=== PATIENT | female | born 1950 | race Caucasian/White ===

== ENCOUNTER 2020-12-19 09:03 | Outpatient (REF) | payer MEDICARE, MEDICAID, SELFPAY ==
--- NOTE | ~2020-12-19 | MM_ITS ---
EXAMINATION: BONE DENSITOMETRY CLINICAL INDICATION: Screening for osteoporosis. COMPARISON: Baseline BD dated 05/03/2014. TECHNIQUE: Using a PrePlay DXA System (software version: 13.1) manufactured by [employer], dual-energy x-ray absorptiometry was performed of the lumbar spine and left hip. The images are of good technical quality. Summary results are attached. FINDINGS: AP SPINE L1-L3 (excluding L4): The data of L1-L4 has been changed to exclude the L4 vertebral body, because degenerative changes at these levels may cause overestimation of lumbar spine density. Current: BMD 1.102 g/cm2, Z-score 1.2, T-score -0.6, normal, 0.0% no change from baseline (<5% change is not significant). Baseline: BMD 1.102 g/cm2. LEFT FEMUR, NECK: Current: BMD 0.800 g/cm2, Z-score 0.1, T-score -1.7, osteopenia. Baseline: BMD 0.774 g/cm2. LEFT FEMUR, TOTAL: Current: BMD 0.844 g/cm2, Z-score 0.3, T-score -1.3, osteopenia, 1.2% increase from baseline (<5% change is not significant). Baseline: BMD 0.834 g/cm2. IDENTIFIED RISK FACTORS: Menopause. HISTORY OF FRACTURE: None listed. MEDICATIONS: None listed. MM/XR DEXA axial skeleton IMPRESSION: 1. DIAGNOSIS: Osteopenia based on the lowest T-score value of -1.7 in the femoral neck applying World Health Organization criteria. 2. 10-YEAR FRACTURE RISK PREDICTION, FRAX: Major osteoporotic fracture (clinical spine, forearm, hip or shoulder) 10.6%. Hip fracture 1.8%. 3. Treatment Recommendations: NOF guidelines recommend consideration for treatment in postmenopausal women and men age 50 and older presenting with the following: -A hip or vertebral (clinical or morphometric) fracture. -T-score less than or equal to -2.5 at the femoral neck or spine after appropriate evaluation to exclude secondary causes. -Low bone mass at the hip or spine and a 10-year fracture probability by FRAX of greater than or equal to 3% for hip fracture or greater than or equal to 20% for major osteoporotic fracture based on the [place] adapted WHO algorithm. 4. Other Recommendations: All treatment decisions require clinical judgment and consideration of individual patient factors, including patient preferences, comorbidities, previous drug use, risk factors not captured in the FRAX model (e.g. frailty, falls, vitamin D deficiency, increased bone turnover, interval significant decline in bone density) and possible under or overestimation of fracture risk by FRAX. Additional medical evaluation for secondary cause of low bone mineral density may be appropriate. FUTURE SCAN RECOMMENDATION: People with diagnosed cases of osteoporosis or at high risk for fracture should have regular bone mineral density tests. For patients eligible for Medicare, routine testing is allowed once every 2 years. The testing frequency can be increased to one year for patients who have rapidly progressing disease, those who are receiving or discontinuing medical therapy to restore bone mass, or have additional risk factors.
== END 2020-12-19 09:04 | disposition home or self-care (01) ==
LOC: HO.MAMMO 09:03
PROVIDERS: PCP Internal Medicine; Visit Provider Internal Medicine
DX: Z13.820 Encounter for screening for osteoporosis (principal); M16.0 Bilateral primary osteoarthritis of hip; Z78.0 Asymptomatic menopausal state
CPT/HCPCS: 77080

== ENCOUNTER 2022-10-02 09:10 | Outpatient (REF) | payer MEDICARE, MEDICAID, SELFPAY ==
--- NOTE | ~2022-10-02 | XR_ITS ---
EXAMINATION: XR CHEST CLINICAL INFORMATION: Cough for one month COMPARISON: Previous chest x-ray August 2019 chest CTA November 2019 TECHNIQUE: 2 views of the chest were obtained. FINDINGS: The cardiac and mediastinal contours are stable. The lungs are well inflated. There is question of lower lobe bronchial wall thickening. No evidence of pneumonia. No pleural effusion or pneumothorax. Bony structures are unremarkable. XR/XR chest 2V IMPRESSION: Well-inflated lungs. Question lower lobe bronchial wall thickening. No evidence of pneumonia.
== END 2022-10-02 09:11 | disposition home or self-care (01) ==
LOC: HO.XRAY 09:10
PROVIDERS: PCP Internal Medicine; Visit Provider Internal Medicine
DX: R05.2 Subacute cough (principal)
CPT/HCPCS: 71046

== ENCOUNTER 2023-09-18 16:12 | Outpatient (REF) | payer MEDICARE, MEDICAID, SELFPAY ==
[2023-09-18 17:49] LABS: Appearance Urine Clear; Color Urine Yellow; Glucose Urine UA Negative (Negative); Leukocyte Esterase Urine Large (3+) (Negative); Nitrite Urine Negative (Negative); Specific Gravity - Urine <= 1.005 (1.005-1.025); UMIC TRIGGER UACC YES; Urine Blood Trace (Negative); Urine Ketones Negative (Negative); Urine Protein Negative (Neg-Trace)
[2023-09-18 17:55] LABS: Bacteria Urine None Seen (None Seen); Hyaline Casts Urine 0-2 /LPF (0-2); RBC Urine 0-2 /HPF (0-2); Squamous Epithelial Cell Urine 0-2 /HPF (0-2); UACC Culture Trigger YES; WBC Urine 21-50 /HPF (0-5)
== END 2023-09-18 16:13 | disposition home or self-care (01) ==
LOC: HO.CHCLNP 16:12
PROVIDERS: Visit Provider Internal Medicine
DX: N30.01 Acute cystitis with hematuria (principal)
CPT/HCPCS: 81001; 87086

== ENCOUNTER 2024-03-10 11:59 | Outpatient (REF) | payer MEDICARE, MEDICAID, SELFPAY ==
[2024-03-10 14:23] LABS: MANUAL DIFF FLAG NO
[2024-03-10 14:25] LABS: Basophils Absolute Auto 0.1 X10*3/uL (0.0-0.2); Basophils Percent Auto 0.9 % (0-2); Eosinophils Absolute Auto 0.3 X10*3/uL (0.0-0.4); Hematocrit 41.4 % (37.0-47.0); Hemoglobin 13.8 g/dl (12.0-16.0); Imm Gran Abs Auto 0.02 X10*3/uL (0.00-0.03); Imm Gran Pct Auto 0.3 % (0.0-0.4); Lymphocytes Absolute Auto 1.9 X10*3/uL (1.2-4.9); Lymphocytes Percent Auto 27.7 % (20-40); Mean Corpuscular HGB Conc 33.3 g/dl (31.0-35.0); Mean Corpuscular Hemoglobin 29.9 pg (27.0-33.0); Mean Corpuscular Volume 89.8 fL (80.0-98.0); Mean Platelet Volume 9.4 fL (9.4-12.3); Monocytes Absolute Auto 0.5 X10*3/uL (0.1-1.2); Neutrophils Absolute Auto 4.1 x10*3/uL (2.0-8.3); Neutrophils Percent Auto 59.1 % (45-73); Platelet Count 255 X10*3/uL (160-400); Red Blood Count 4.61 X10*6/uL (4.20-5.50); Red Cell Distribution Width 13.2 % (11.0-16.0); White Blood Count 6.9 X10*3/uL (4.8-10.8)
[2024-03-10 14:54] LABS: Alanine Aminotransferase 13 U/L (0-31); Albumin Level 4.2 g/dL (3.5-5.0); Alkaline Phosphatase 98 U/L (39-117); Anion Gap 15 (12-20); Aspartate Amino Transferase 23 U/L (5-31); Bilirubin Total 0.4 mg/dL (0.0-1.0); Blood Urea Nitrogen 10 mg/dL (9-16); Carbon Dioxide 25 mmol/L (22-29); Chloride 106 mmol/L (96-108); Cholesterol 185 mg/dL (<200); Estimated Glomerular Filt Rate > 60; Glucose Random 94 mg/dL (60-115); HDL Cholesterol 55 mg/dL (>40); LDL Cholesterol Calculated 108 mg/dL (<100); Potassium 3.9 mmol/L (3.3-5.1); Sodium 142 mmol/L (135-145); Total Protein 7.1 g/dL (6.5-8.0); Triglycerides 114 mg/dL (<150)
[2024-03-10 15:01] LABS: TSH reflex Free T4 1.96 uIU/mL (0.32-4.0)
== END 2024-03-10 12:00 | disposition home or self-care (01) ==
LOC: HO.CHCLDS 11:59
PROVIDERS: Visit Provider Internal Medicine
DX: I10 Essential (primary) hypertension (principal); E78.2 Mixed hyperlipidemia
CPT/HCPCS: 36415; 80053; 80061; 84443; 85025

== ENCOUNTER 2024-06-09 13:19 | Outpatient (REF) | payer MEDICARE, MEDICAID, SELFPAY ==
--- OUTSIDE RECORDS SUMMARY | 2024-06-09 16:18 | XMS_ITS | Encounter Summary ---
Author Organization [employer] Address [address] [place] [address] [address] [place] [address] Care Team Providers Care Recreation Activities Coordinator Name Role Phone Francisco Suh MD Primary Care Provider [phone] Reason for Visit * Reason Comments Med Refill Encounter Details Date Type Department Care Team ([facility] Contact Info) Description 10/10/2022 Refill [facility] & PEDS [address], [place] [id number] Loyda Salas MD [address] [place] [address] Social History Tobacco Use Types Packs/Day Years Used Date Smoking Tobacco: Former Cigarettes 0.5 49 1 968 - 2016 Smokeless Tobacco: Never Depression Answer Date Recorded Patient Health Questionnaire-9 Score 0 09/26/2022 Depression Answer Date Recorded Patient Health Questionnaire-2 Score 0 09/26/2022 Comments Unknown Sex and Gender Information Value Date Recorded Sex Assigned at Female 02/11/2022 10:14 AM EDT Legal Sex Female 10:14 AM EDT Gender Identity Female 02/11/2022 10:14 AM EDT Sexual Orientation Straight 02/11/2022 10 :14 AM EDT COVID-19 Exposure Response Date Recorded In the last 10 days, have yo u been in contact with someone who was confirmed or suspected to have Coronavirus/COVID-19? No / Unsure 10/10/2022 1:01 PM EDT documented as of this encounter Plan of Treatment Upcoming Encounters Date Type Department Care Team (Late Contact Info) Description 08/10/2024 10:30 AM EDT Office Visit [facility] MED & PEDS [address] [place] [address] Francisco Suh MD [address] [place] [address] documented as of this encounter Visit Diagnoses Not on filedocumented in this encounter Additional Health Concerns Assessment Noted Time PHQ-9 Depression Total Score: 0 09/27/19 23 10:06 AM EDT documented as of this encounter Care Teams Recreation Activities Coordinator Relationship Specialty Start Date End Date Francisco Suh MD [address] [place] [address] PCP - General Internal Medicine 04/21/13 documented as of this encounter
--- OUTSIDE RECORDS SUMMARY | 2024-06-09 16:18 | XMS_ITS | Encounter Summary ---
Author Organization [employer] Address [address] [place] [address] [address] [place] [address] Care Team Providers Care Assistant Maintenance Manager Name Role Phone Francisco Suh MD Primary Care Provider [phone] Reason for Visit * Reason Onset Date Comments Medication Question 09/01/2023 Encounter Details Date Type Department Care Team ([facility] st Contact Info) Description 09/01/2023 Telephone [facility] MEDICINE [address] [place] [address] Francisco Suh MD [address] [place] [address] Medication Question Social History Tobacco Use Types Packs/Day Years Used Date Smoking Tobacco: Former Cigarettes 0.5 49 1 968 - 2017 Smokeless Tobacco: Never Depression Answer Date Recorded Patient Health Questionnaire-9 Score 0 09/26/2022 Depression Answer Date Recorded Patient Health Questionnaire-2 Score 0 09/26/2022 Comments Unknown Sex and Gender Information Value Date Recorded Sex Assigned at Female 02/11/2022 10:14 AM EDT Legal Sex Female 10:14 AM EDT Gender Identity Female 02/11/2022 10:14 AM EDT Sexual Orientation Straight 02/11/2022 10 :14 AM EDT documented as of this encounter Miscellaneous Notes * Telephone Encounter - Wing Rufina RN - 09/02/2023 9:26 AM EDT Tc to pt to report change in script to incruse ellipta. Pt verbalized understanding and agreement with plan, states she will call [facility] pharm to see if med can be sent to her due to transportation issues. * Telephone Encounter - Chidi Bradshaw - 09/01/2023 9:04 AM EDT Tc from patient calling to request a alternative medication for the Spiriva HandiHaler 18 MCG inhalation capsule patient stated due to insurance it will not be covered documented in this encounter Plan of Treatment Upcoming Encounters Date Type Department Care Team (Late st Contact Info) Description 08/10/2024 10:30 AM EDT Office Visit [facility] MED & PEDS [address] [place] [address] Francisco Suh MD [address] [place] [address] documented as of this encounter Visit Diagnoses Not on filedocumented in this encounter Additional Health Concerns Assessment Noted Time PHQ-9 Depression Total Score: 0 09/27/19 23 10:06 AM EDT documented as of this encounter Care Teams Assistant Maintenance Manager Relationship Specialty Start Date End Date Francisco Suh MD [address] [place] [address] PCP - General Internal Medicine 04/21/13 documented as of this encounter
--- OUTSIDE RECORDS SUMMARY | 2024-06-09 16:18 | XMS_ITS | Clinical Summary ---
Author Organization [employer] Address [address] [place] [address] [address] [place] [address] Care Team Providers Care Kitchen Porter Name Role Phone Francisco Suh MD Primary Care Provider [phone] Allergies Active Allergy Reactions Criticality Noted Date Comments Iodine 11/03/2012 Shellfish-Derived Products High 2 Other reaction(s): Hives Medications amLODIPine (Norvasc) 10 MG tabletIndication s:Essential hypertension TAKE ONE TABLET EVERY DAY 90 tablet 3 3 Active simvastatin (Zocor) 40 MG tablet TAKE ONE TABLET EVERY EVENING 2 Active omeprazole (PriLOSEC) [address] capsule take 1 capsule by oral route every day before a meal 2 Active albuterol (2.5 MG/3ML) 0.083% nebulizer solution Take 3 mL (2.5 mg) by nebulization every 4 (four) hours if needed for wheezing. 30 mL 1 3 Active omeprazole (PriLOSEC) [address] capsule TAKE ONE CAPSULE BY MOUTH EVERY DAY BEFORE A MEAL 90 capsule 3 4 Active amLODIPine (Norvasc) 10 MG tablet Take 1 tablet (10 mg) by mouth in the morning. 90 tablet 3 4 025 Active simvastatin (Zocor) 40 MG tabletIndication s:Hypercholester olemia TAKE ONE TABLET EVERY EVENING 90 tablet 3 4 Active Spiriva HandiHaler 18 MCG inhalation capsule USE 1 CAPSULE FOR INHALATION ONCE A DAY DO NOT SWALLOW CAPSULE 30 capsule 11 4 Active Umeclidinium [place] (Incruse Ellipta) 62.5 MCG/ACT aerosol powderIndication s:Chronic obstructive pulmonary disease with acute exacerbation (CMS/HCC) Inhale 1 Act (62.5 mcg) Once per day. 3 months supply please. 90 each 3 4 Active albuterol 108 (90 Base) MCG/ACT inhalerIndicatio ns:Chronic obstructive pulmonary disease with acute exacerbation (CMS/HCC) Inhale 2 puffs every 4 (four) hours if needed for wheezing. 18 g 3 4 025 Active Advair HFA 230-21 MCG/ACT inhalerIndicatio ns:COPD mixed type (CMS/HCC) INHALE ONE PUFF EVERY 12 HOURS, RINSE MOUTH AFTER USE 12 g 11 5 Active fluconazole (Diflucan) 150 MG tabletIndication s:Acute vaginitis Take 1 tablet by oral route. 1 tablet 5 Active Active Problems Problem Noted Date Diagnosed Date Chronic obstructive lung disease 12/04/2017 Benign hypertension 12/03/2011 Diverticular disease 12/03/2011 Hyperlipidemia 12/03/2011 Encounters Date Type Department Care Team Description 06/09/2024 11:15 AM EST Office Visit [facility] [address] [place] [address] TofteLeeann FNP Acute vaginitis (Primary Dx) 06/09/2024 Travel 06/08/2024 Telephone [facility] [address] [place] [address] Francisco Suh MD 04/22/2024 9:00 AM EST Telemedicine [facility] [address] [place] [address] Francisco Suh MD Benign hypertension (Primary Dx); Chronic obstructive pulmonary disease with acute exacerbation (CMS/HCC); Neck pain 04/22/2024 Travel 04/15/2024 Refill [facility] [address] [place] [address] Francisco Suh MD COPD mixed type (CMS/HCC) 03/22/2024 Telephone [facility] [address] [place] [address] Francisco Suh MD 03/22/2024 Telephone [facility] [address] [place], [place] [phone] Francisco Suh MD 03/21/2024 Orders Only [facility] [address] [place] [address] Francisco Suh MD Positive colorectal cancer screening using Cologuard test (Primary Dx) 03/10/2024 10:30 AM EST Office Visit [facility] [address] [place] [address] Francisco Suh MD Benign hypertension (Primary Dx); Chronic obstructive pulmonary disease with acute exacerbation (CMS/HCC); Mixed hyperlipidemia; Screening for colon cancer 03/10/2024 Travel from Last 3 Months Immunizations Name Administration Dates Next Due TD (adult), 2 Lf tetanus tox oid, preservative free, adsorbed 07/10/2004,07/22/1994 Social History Tobacco Use Types Packs/Day Years Used Date Smoking Tobacco: Former Cigarettes 0.5 49 1 968 - 2017 Smokeless Tobacco: Never Tobacco Cessation:Counseling Given: No Depression Answer Date Recorded Patient Health Questionnaire-9 Score 0 03/10/2024 Patient Health Questionnaire-9 Score 0 03/10/2024 Last PHQ-9: Questionnaire Data Not on file 1 05/10/2023 Housing Stability Answer Date Recorded What is your housing situation today? I have gary mays 03/10/[address] you li ve. Do you have problems with any of the following? None of the above 03/10/2024 Food Insecurity Answer Date Recorded Within the past 12 months, y ou worried that your food would run out before you got money to buy more: Never True 03/10/2024 Within the past 12 months,th e food you bought just didn't last and you didn't have enough money to get more: Never True Transportation Answer Date Recorded In the past 12 months, has l ack of transportation kept you from medical appts, meetings, work or from getting things needed for daily living? No 03/10/2024 Utilities Answer Date Recorded In the past 12 months, has t he electric, gas, oil or water company threatened to shut off services in your home? No 03/10/2024 Depression Answer Date Recorded Patient Health Questionnaire-2 Score 0 03/10/2024 Internet Access Answer Date Recorded Internet Access Q1 Yes 03/10/2024 Internet Access Q2 Not on file 03/10/2024 Comments Unknown Sex and Gender Information Value Date Recorded Sex Assigned at Female 02/11/2022 10:14 AM EDT Legal Sex Female 10:14 AM EDT Gender Identity Female 02/11/2022 10:14 AM EDT Sexual Orientation Straight 02/11/2022 10 :14 AM EDT Last Filed Vital Signs Vital Sign Reading Time Taken Comments Blood Pressure 140/68 06/09/2024 12:13 PM EST Pulse 88 06/09/2024 11:23 AM EST Temperature 36.5 ??C (97.7 ??F) 06/09/2024 11:[address] Respiratory Rate 14 06/09/2024 11:23 AM EST Oxygen Saturation 96% 06/09/2024 11:23 AM EST Inhaled Oxygen Concentration - - Weight 57.2 kg (126 lb) 06/09/2024 11:23 AM EST Height 152.4 cm (5') 06/09/2024 11:23 AM EST Body Mass Index 24.61 06/09/2024 11:23 AM EST Plan of Treatment Upcoming Encounters Date Type Department Care Team (Late st Contact Info) Description 08/10/2024 10:30 AM EDT Office Visit [facility] [address] [place] [address] Francisco Suh MD [address] [place] [address] Health Maintenance Due Date Last Done Comments CT Colonography 1950 Colonoscopy 1950 FIT 1950 FOBT 1950 Sigmoidoscopy 1950 Alcohol/Substance Use Screening 1962 Lung Cancer Screening 2000 Zoster Vaccines (1 of 2) 2000 RSV Patients and Patients Aged 60 years or older (1 - Risk 60-74 years 1-dose series) 2010 Mammogram 12/19/2022 12/19/2020, 02/23/2019 Influenza Vaccine (#1) 2024 Postp oned from 12/14/2023 (Patient Refused) COVID-19 Vaccine (1 - 2023-2 5 season) 2025 Postponed from 12/13 (Patient Refused) DTaP/Tdap/Td Vaccines (1 - Tdap) 03/10/2025 07/10/2004, 07/22/1994 Postponed from 07/11/2004 (Patient Refused) Depression Screening 03/10/2025 03/10/2024, 03/10/2024 Pneumococcal Vaccine: 50+ Years (1 of 2 - PCV) 03/10/2025 Postponed from 08/13 (Patient Refused) SDOH Screening 03/10/2025 03/10/2024 Tobacco Screening 04/22/2025 04/22/2024 Colorectal Cancer Screening 03/15/2027 FIT DNA/Cologuard 03/15/2027 03/15/2024 Lipid Panel 03/10/2029 03/10/2024, 01/07/2022 Hepatitis C Screening Completed 01/07/2022 HIB Vaccines Aged Out No longer eligi ble based on patient's age to complete this topic HPV Vaccines Aged Out No longer eligi ble based on patient's age to complete this topic Hepatitis A Vaccines Aged Out No long er eligible based on patient's age to complete this topic Hepatitis B Vaccines Aged Out No long er eligible based on patient's age to complete this topic IPV Vaccines Aged Out No longer eligi ble based on patient's age to complete this topic Meningococcal Vaccine Aged Out No henri rhina eligible based on patient's age to complete this topic RSV under 20 months Aged Out No longe r eligible based on patient's age to complete this topic Rotavirus Vaccines Aged Out No longer eligible based on patient's age to complete this topic Procedures Procedure Name Priority Date/Time Associated Diagnosis Comments POCT URINALYSIS DIPSTICK Routine 06/09/2024 12:50 PM EST Acute vaginitis LAB COLOGUARD?? COLON CANCER SCREEN Routine 03/15/2024 10:15 AM EST Screening for colon cancer TSH W/REFLEX TO FT4 Routine 03/10/2024 1 2:00 PM EST Mixed hyperlipidemia LIPID PANEL, STANDARD Routine 03/10/2024 12:00 PM EST Mixed hyperlipidemia COMPREHENSIVE METABOLIC PANEL Routine 03/10/2024 12:00 PM EST Mixed hyperlipidemia CBC WITH AUTO DIFFERENTIAL Routine 03/10/2024 12:00 PM EST Benign hypertension Mixed hyperlipidemia ZZZ HISTORICAL HEPATITIS C AB W/REFL TO HCV RNA, QN, PCR Routine 01/07/2022 9:50 AM EDT MAMMOGRAM GENERIC Routine 12/19/2020 9:1 5 AM EDT from Last 3 Months or Most Recently Relevant to Health Maintenance Results * POCT urinalysis dipstick manually resulted (06/09/2024 12:50 PM EST) Color, UA Yellow Clarity, UA Clear Glucose, UA Negative Bilirubin, UA Negative Ketones, UA Negative Spec Grav, UA 1.030 Blood, UA Negative Negative, None Detected pH, UA 6.0 Protein, UA Negative Urobilinogen, UA 1.0 Leukocytes, UA Negative Negative, Rare, Trace Nitrite, UA Negative Negative, None Detected Appearance, UA clear QC Media Lot # Comment:[id number] Lot# Expiration Date Comment:01/11/2025 Urine 06/09/2024 12:5 0 PM EST [facility] ENVIRONMENTAL MAINTENANCE WORKER POINT OF CARE TEST ENTER/EDIT ORDERABLES Final Result * (ABNORMAL) Cologuard?? colon cancer screening (03/15/2024 10:15 AM EST) Cologuard Result Positive( A) Negative 03/20/2024 9:39 PM EST [facility] (CLIA #:[id number]) Comment: POSITIVE TEST RESULT. A positive Cologuard result should be followed with a colonoscopy or visual examination of the colon. The normal value (reference range) for this assay is negative. TEST DESCRIPTION: Composite algorithmic analysis of stool DNA-biomarkers with hemoglobin immunoassay. ?? Quantitative values of individual biomarkers are not reportable and are not associated with individual biomarker result reference ranges. Cologuard is intended for colorectal cancer screening of adults of either sex, 45 years or older, who are at average-risk for colorectal cancer (CRC). Cologuard has been approved for use by the U.S. FDA. The performance of Cologuard was established in a cross sectional study of average-risk adults aged 50-84. Cologuard performance in patients ages 45 to 49 years was estimated by sub-group analysis of near-age groups. Colonoscopies performed for a positive result may find as the most clinically significant lesion: colorectal cancer [4.0%], advanced adenoma (including sessile serrated polyps greater than or equal to 1cm diameter) [20%] or non- advanced adenoma [31%]; or no colorectal neoplasia [45%]. These estimates are derived from a prospective cross-sectional screening study of 10,000 individuals at average risk for colorectal cancer who were screened with both Cologuard and colonoscopy. (Johnie Ag al, N Engl J Med 2014;370(14):1037-3686.) Cologuard may produce a false negative or false positive result (no colorectal cancer or precancerous polyp present at colonoscopy follow up). A negative Cologuard test result does not guarantee the absence of CRC or advanced adenoma (pre-cancer). The current Cologuard screening interval is every 3 years. ([place] Cancer Society and U.S. Multi-Society Task Force). Cologuard performance data in a 10,000 patient pivotal study using colonoscopy as the reference method can be accessed at the following location: [email or web address]. Additional description of the Cologuard test process, warnings and precautions can be found at [email or web address]. Stool specimen (specimen) 03/15/2024 10:15 AM EST 03/16/2024 1:11 PM EST us Francisco Suh MD LAB MOLECULAR DIAGNOSTICS O RDERABLES Final Result [email or web address] (CLIA #:[id number]) [place] [address], * TSH W/Reflex to FT4 (03/10/2024 12:00 PM EST) Pathologist [facility] TSH reflex Free T4 1.96 0.32 - 4.0 uIU/mL [facility] Blood Venous blood specimen / Unknown 03/10/2024 12:00 PM EST 03/10/2024 2:18 PM EST Francisco Suh MD LAB BLOOD ORDERABLES Final Result Performing Organization Address City/[facility]/ZIP Co de Phone Number [facility] [address] [place] [address] [phone] * (ABNORMAL) CBC auto differential (03/10/2024 12:00 PM EST) [facility] White Blood Count 6.9 4.8 - 10.8 X10*3/uL [facility] Red Blood Count 4.61 4.20 - 5.50 X10*6/uL [facility] Hemoglobin 13.8 12.0 - 16.0 g/dl [facility] Hematocrit 41.4 37.0 - 47.0 % [facility] Mean Corpuscular Volume 89.8 80.0 - 98.0 fL [facility] Mean Corpuscular Hemoglobin 29.9 27.0 - 33.0 pg [facility] Mean Corpuscular HGB Conc 33.3 31.0 - 35.0 g/dl [facility] Red Cell Distribution Width 13.2 11.0 - 16.0 % [facility] Platelet Count 255 160 - 400 X10*3/uL [facility] Mean Platelet Volume 9.4 9.4 - 12.3 fL [facility] Neutrophils Percent Auto 59.1 45 - 73 % [facility] Imm Gran Pct Auto 0.3 0.0 - 0.4 % [facility] Lymphocytes Percent Auto 27.7 20 - 40 % [facility] Monocytes Percent Auto 7.0 2 - 11 % [facility] Eosinophils Percent Auto 5.0(H) 0 - 4 % [facility] Basophils Percent Auto 0.9 0 - 2 % [facility] NRBC Pct Auto 0.0 0.0 - 0.2 /100WBC [facility] Neutrophils Absolute Auto 4.1 2.0 - 8.3 x10*3/uL [facility] Imm Gran Abs Auto 0.02 0.00 - 0.03 X10*3/uL [facility] Lymphocytes Absolute Auto 1.9 1.2 - 4.9 X10*3/uL [facility] Monocytes Absolute Auto 0.5 0.1 - 1.2 X10*3/uL [facility] Eosinophils Absolute Auto 0.3 0.0 - 0.4 X10*3/uL [facility] Basophils Absolute Auto 0.1 0.0 - 0.2 X10*3/uL [facility] NRBC Abs Auto 0.000 0.0 - 0.012 X10*3/uL [facility] Blood Venous blood specimen / Unknown 03/10/2024 12:00 PM EST 03/10/2024 2:18 PM EST us Francisco Suh MD LAB BLOOD ORDERABLES Final Result [facility] [address] [place] [address] [phone] * (ABNORMAL) Lipid Panel, Standard (03/10/2024 12:00 PM EST) Triglycerides 114 <150 mg/dL [facility] Comment:Desirable Triglyceri de: less than 150 mg/dLBorderline High Triglyceride 150-199 mg/dLHigh Triglyceride: 200-499 mg/dLVery High Triglyceride: greater than or equal to 5OO mg/dL Cholesterol 185 <200 mg/dL [facility] Comment:Desirable Cholestero l: less than 200 mg/dLBorderline High Cholesterol: 200-239 mg/dLHigh Cholesterol: greater than 239 mg/dL LDL Cholesterol Calculated 108(H) <100 mg/dL [facility] Comment:Desirable LDL: less than 100 mg/dLNear Optimal/Above Optimal LDL: 110- 129 mg/dLBorderline High LDL: 130-159 mg/dLHigh LDL: 160-189 mg/dLVery High LDL: greater than or equal to 190 mg/dL HDL Cholesterol 55 >40 mg/dL [facility] Comment:Desirable HDL: great er than 40 mg/dL Note: This HDL assay may give artificially low results in patients with liver disease. Blood Venous blood specimen / Unknown 03/10/2024 12:00 PM EST 03/10/2024 2:18 PM EST us Francisco Suh MD LAB BLOOD ORDERABLES Final Result [facility] [address] [place] [phone] * Comprehensive Metabolic Panel (03/10/2024 12:00 PM EST) Sodium 142 135 - 145 mmol/L [facility] Potassium 3.9 3.3 - 5.1 mmol/L [facility] Chloride 106 96 - 108 mmol/L [facility] Carbon Dioxide 25 22 - 29 mmol/L [facility] Anion Gap 15 12 - 20 [facility] Urea Nitrogen (BUN) 10 9 - 16 mg/dL [facility] Creatinine, Serum 0.75 0.5 - 1.4 mg/dL [facility] Estimated Glomerular Filt Rate >60 [facility] Comment:Chronic Kidney Disea se: Estimated GFR < 60 mL/min/1.66j5Smgiov Kidney Disease: Estimated GFR < 15 mL/min/1.73m2 Glucose 94 60 - 115 mg/dL [facility] Calcium 9.0 8.4 - 10.2 mg/dL [facility] Bilirubin, Total 0.4 0.0 - 1.0 mg/dL [facility] Aspartate Amino Transferase 23 5 - 31 U/L [facility] Alanine Aminotransferase 13 0 - 31 U/L [facility] Total Protein 7.1 6.5 - 8.0 g/dL [facility] Albumin Level 4.2 3.5 - 5.0 g/dL [facility] Alkaline Phosphatase 98 39 - 117 U/L [facility] Blood Venous blood specimen / Unknown 03/10/2024 12:00 PM EST 03/10/2024 2:18 PM EST us Francisco Suh MD LAB BLOOD ORDERABLES Final Result [facility] [address] [place] [address] [phone] * HEPATITIS C AB W/REFL TO HCV RNA, QN, PCR (01/07/2022 9:50 AM EDT) HEPATITIS C ANTIBODY NON-REACT [facility] NON-REACT [facility] INDEX 0.05 <1.00 [facility] Comment: ?? HCV antibody was non-reactive. There is no laboratory ?? evidence of HCV infection. ?? In most cases, no further action is required. However, if recent HCV exposure is suspected, a test for HCV RNA (test code 55424) is suggested. ?? For additional information please refer to http://education.Finsphere/faq/RZI30y6 (This link is being provided for informational/ educational purposes only.) ?? 01/07/2022 9:50 AM EDT us Francisco Suh MD HISTORICAL/NON ORDERABLE LA BS Final Result [facility] [address] * Mammography Report 1 (12/19/2020 9:15 AM EDT) Anatomical Region Laterality Modality Breast Bilateral Mammography 12/19/2020 9:15 AM EDT Narrative 12/20/2020 7:57 AM EDT Refer to the Notes tab for result details [facility] Procedure: Mammography Report 1 Procedure Note Provider, MD Mariya - 07/07/2022 Refer to the Notes tab for result details [facility] Procedure: Mammography Report 1 us Francisco Suh MD IMG BI PROCEDURES Final Res ult from Last 3 Months or Most Recently Relevant to Health Maintenance Insurance MEDICARE [facility] * Guarantor: Rachael Mcgraw Account Type Relation to Patient Date of Phone Billing Address Personal/Family Self [address] [facility] [place] [address] Care Teams Kitchen Porter Relationship Specialty Start Date End Date Francisco Suh MD [address] [place] [address] [place] [address] PCP - General Internal Medicine 04/21/13
--- OUTSIDE RECORDS SUMMARY | 2024-06-09 16:18 | XMS_ITS | Encounter Summary ---
Author Organization [employer] Address [address] [place] [address] [address] [place] [address] Care Team Providers Care Pulmonary Physical Therapist Name Role Phone Francisco Suh MD Primary Care Provider [phone] Encounter Details Date Type Department Care Team ([facility] st Contact Info) Description 06/09/2024 11:15 AM EST Office Visit [facility] [address] [place], [place] [phone] [facility] [address] [place] [address] Acute vaginitis (Primary Dx) Social History Tobacco Use Types Packs/Day Years [...] AM EDT documented as of this encounter Last Filed Vital Signs Vital Sign Reading [...] Mass Index 24.61 06/09/2024 11:23 AM EST documented in this encounter Plan of Treatment Upcoming Encounters Date Type Department Care Team (Late st Contact Info) Description 08/10/2024 10:30 AM EDT Office Visit [facility] [address] [place] [address] Francisco Suh MD [address] [place] [address] Scheduled Orders Name Type Priority Associated Diagnoses Orde r Schedule Bacterial Vaginosis Panel Microbiology Routine Acute vaginitis Ordered: 06/09/2024 documented as of this encounter Procedures Procedure Name Priority Date/Time Associated Diagnosis Comments POCT URINALYSIS DIPSTICK Routine 06/09/2024 12:50 PM EST Acute vaginitis documented in this encounter Results * POCT urinalysis dipstick manually resulted [...] Appearance, UA clear QC Media Lot # Comment:[id number] Lot# Expiration Date Comment:01/11/2025 Urine 06/09/2024 12:5 0 PM EST [facility] YEAST SUPERVISOR POINT OF CARE TEST ENTER/EDIT ORDERABLES Final Result documented in this encounter Visit Diagnoses Diagnosis Acute vaginitis- Primary Unspecified vaginitis and vulvovaginitis documented in this encounter Additional Health Concerns Assessment Noted Time PHQ-9 Depression Total Score: 0 03/10/20 24 11:11 AM EST documented as of this encounter Care Teams Pulmonary Physical Therapist Relationship Specialty Start Date End Date Francisco Suh MD [address] [place] [phone] PCP - General Internal Medicine 04/21/13 documented as of this encounter
--- OUTSIDE RECORDS SUMMARY | 2024-06-09 16:18 | XMS_ITS | Encounter Summary ---
Author Organization [employer] Address [address] [facility] [address] [place] [address] Care Team Providers Care Military Technology Manager Name Role Phone Francisco Suh MD Primary Care Provider [phone] Encounter Details Date Type Department Care Team (Latest Contact Info) Description 06/09/2024 Travel Social History Tobacco Use Types Packs/Day Years Used Date Smoking Tobacco: Former Cigarettes 0.5 49 1 968 - 2017 Smokeless Tobacco: Never Depression Answer Date Recorded Patient Health Questionnaire-9 Score 0 03/10/2024 Patient Health Questionnaire-9 Score 0 03/10/2024 Last PHQ-9: Questionnaire Data Not on file 1 05/10/2023 Housing Stability Answer Date Recorded What is your housing situation today? I have garynii mays 03/10/[address] you [...] AM EDT documented as of this encounter Plan of Treatment Upcoming Encounters Date Type Department Care Team (Late st Contact Info) Description 08/10/2024 10:30 AM EDT Office Visit [facility] [address] [place] [address] Francisco Suh MD [address] [place] [address] documented as of this encounter Visit Diagnoses Not on filedocumented in this encounter Additional Health Concerns Assessment Noted Time PHQ-9 Depression Total Score: 0 03/10/20 24 11:11 AM EST documented as of this encounter Care Teams Military Technology Manager Relationship Specialty Start Date End Date Francisco Suh MD [address] [place] [address] PCP - General Internal Medicine 04/21/13 documented as of this encounter
--- OUTSIDE RECORDS SUMMARY | 2024-06-09 16:18 | XMS_ITS | Encounter Summary ---
Author Organization [employer] Address [address] [place] [address] [place] [address] Care Team Providers Care Product Inspection Coordinator Name Role Phone Francisco Suh MD Primary Care Provider +1- [phone] Reason for Visit * Reason Onset Date Comments Medication Question 07/04/2023 Encounter Details Date Type Department Care Team ([facility] st Contact Info) Description 07/04/2023 Telephone [facility] MEDICINE [address] [place] [address] Francisco Suh MD [address] [place] [address] Medication Question Social History Tobacco Use Types [...] encounter Miscellaneous Notes * Telephone Encounter - Chidi Bradshaw - 07/04/2023 9:13 AM EDT Tc from patient calling to request the medication amLODIPine (Norvasc) 10 MG tablet be changed to a90 day supply documented in this encounter Plan of Treatment Upcoming Encounters Date Type Department Care Team (Late st Contact Info) Description 08/10/2024 10:30 AM EDT Office Visit [facility] CHC MED & PEDS [address] [place] [address] Francisco Suh MD [address] [place] [address] documented as of this encounter Visit Diagnoses Diagnosis Essential hypertension Unspecified essential hypertension Hypercholesterolemia Pure hypercholesterolemia documented in this encounter Additional Health Concerns Assessment Noted Time PHQ-9 Depression Total Score: 0 09/27/19 23 10:06 AM EDT documented as of this encounter Care Teams Product Inspection Coordinator Relationship Specialty Start Date End Date Francisco Suh MD [address] [place] [address] PCP - General Internal Medicine 04/21/13 documented as of this encounter
--- OUTSIDE RECORDS SUMMARY | 2024-06-09 16:18 | XMS_ITS | Encounter Summary ---
Author Organization [employer] Address [address] [place] [address] Care Team Providers Care Nursing Education Consultant Name Role Phone Francisco Suh MD Primary Care Provider +1- [phone] Encounter Details Date Type Department Care Team (Late st Contact Info) Description 06/21/2022 Orders Only [facility] MED & PEDS [address] [place] [address] Ekaterina Serrano LPN Social History Tobacco Use Types Packs/Day Years Used Date Smoking Tobacco: Never Assessed Comments Unknown Sex and Gender Information Value [...] Description 08/10/2024 10:30 AM EDT Office Visit [facility] MED & PEDS [address] [place] [address] Francisco Suh MD [address] [place] [address] documented as of this encounter Visit Diagnoses Not on filedocumented in this encounter Care Teams Nursing Education Consultant Relationship Specialty Start Date End Date Francisco Suh MD [address] [place] [address] PCP - General Internal Medicine 04/21/13 documented as of this encounter
--- OUTSIDE RECORDS SUMMARY | 2024-06-09 16:18 | XMS_ITS | Encounter Summary ---
Author Organization [employer] Address [address] [place] [address] 7 [place] [address] Care Team Providers Care Manufacturing Quality Engineer Name Role Phone Francisco Suh MD Primary Care Provider +1- [phone] Encounter Details Date Type Department Care Team (Late Contact Info) Description 09/01/2023 Orders Only [facility] MED & PEDS [address] [place], [place] [phone] Francisco Suh MD [address] [place] [address] Chronic obstructive pulmonary disease with acute exacerbation (CMS/HCC) (Primary Dx) Social History Tobacco Use Types [...] 08/10/2024 10:30 AM EDT Office Visit [facility] MED & PEDS [address] [place], [place] [phone] Francisco Suh MD [address] [place] [address] documented as of this encounter Visit Diagnoses Diagnosis Chronic obstructive pulmonary disease with acute exacerbation (CMS/HCC)- Primary documented in this encounter Additional Health Concerns Assessment Noted Time PHQ-9 Depression Total Score: 0 09/27/19 23 10:06 AM EDT documented as of this encounter Care Teams Manufacturing Quality Engineer Relationship Specialty Start Date End Date Francisco Suh MD [address] [place] [address] PCP - General Internal Medicine 04/21/13 documented as of this encounter
--- OUTSIDE RECORDS SUMMARY | 2024-06-09 16:18 | XMS_ITS | Encounter Summary ---
Author Organization [employer] Address [address] [place] [address] 7 [place] [address] Care Team Providers Care Conservation Worker Name Role Phone Francisco Suh MD Primary Care Provider +1- [phone] Encounter Details Date Type Department Care Team (Late Contact Info) Description 07/04/2023 Orders Only [facility] CHC MED & PEDS [address] [place], [place] [phone] Francisco Suh MD [address] [place] [address] Social History Tobacco Use Types Packs/Day Years [...] Description 08/10/2024 10:30 AM EDT Office Visit [facility] CHC MED & PEDS [address] [place], [place] [phone] Francisco Suh MD [address] [place], [place] [phone] documented as of this encounter Visit Diagnoses Not on filedocumented in this encounter Additional Health Concerns Assessment Noted Time PHQ-9 Depression Total Score: 0 09/27/19 23 10:06 AM EDT documented as of this encounter Care Teams Conservation Worker Relationship Specialty Start Date End Date Francisco Suh MD [address] [place] [address] PCP - General Internal Medicine 04/21/13 documented as of this encounter
--- OUTSIDE RECORDS SUMMARY | 2024-06-09 16:18 | XMS_ITS | Encounter Summary ---
Author Organization [employer] Address [address] [place] [address] 7 [place] [address] Care Team Providers Care Pot Puller Name Role Phone Francisco Suh MD Primary Care Provider +1- [phone] Encounter Details Date Type Department Care Team ([facility] Contact Info) Description 10/09/2022 Orders Only [facility] MEDICINE [address] [place] [address] Namrata Lopez LPN Social History Tobacco Use Types Packs/Day [...] Upcoming Encounters Date Type Department Care Team ([facility] Contact Info) Description 08/10/2024 10:30 AM EDT Office Visit [facility] CHC MED & PEDS [address] [place] [address] Francisco Suh MD [address] [place] [address] documented as of this encounter Visit Diagnoses Not on filedocumented in this encounter Additional Health Concerns Assessment Noted Time PHQ-9 Depression Total Score: 0 09/27/19 23 10:06 AM EDT documented as of this encounter Care Teams Pot Puller Relationship Specialty Start Date End Date Francisco Suh MD [address] [place] [address] PCP - General Internal Medicine 04/21/13 documented as of this encounter
--- OUTSIDE RECORDS SUMMARY | 2024-06-09 16:18 | XMS_ITS | Encounter Summary ---
Author Organization [employer] Address [address] [place] [address] [place] [address] Care Team Providers Care Managed Services Sales Consultant Name Role Phone Francisco Suh MD Primary Care Provider +1- [phone] Reason for Referral * Consultation (Routine) - Authorized Specialty Diagnoses / Procedures Referred By Contac t Referred To Contact Gastroenterology Diagnoses Positive colorectal cancer screening using Cologuard test Francisco Suh MD [address] [place] [address] Phone: tel: fax: Adalberto Tomlinson MD [address] [place] [address] Phone: tel: fax: Referral ID Status Reason Start Date Expiration Date Visits Requested Visits Authorized [id number] Authorized Specialty Services Required 03/21/2024 03/21/2025 1 1 Encounter Details Date Type Department Care Team ([facility] st Contact Info) Description 03/21/2024 Orders Only [facility] CHC MED & PEDS [address] [place], [place] [phone] Francisco Suh MD [address] [place] [phone] Positive colorectal cancer screening using Cologuard test (Primary Dx) Social History Tobacco Use Types [...] Description 08/10/2024 10:30 AM EDT Office Visit [facility] CHC MED & PEDS [address] [place] [address] Francisco Suh MD [address] [place] [address] Scheduled Referrals Name Type Priority Associated Diagnoses Order Schedule Referral to Gastroenterology Outpatient Referral Routine Positive colorectal cancer screening using Cologuard test Expected: 03/21/2024 (Approximate), Expires: 03/21/2025 documented as of this encounter Visit Diagnoses Diagnosis Positive colorectal cancer screening using Cologuard test- Primary documented in this encounter Additional Health Concerns Assessment Noted Time PHQ-9 Depression Total Score: 0 03/10/20 24 11:11 AM EST documented as of this encounter Care Teams Managed Services Sales Consultant Relationship Specialty Start Date End Date Francisco Suh MD [address] [place] [address] PCP - General Internal Medicine 04/21/13 documented as of this encounter
--- OUTSIDE RECORDS SUMMARY | 2024-06-09 16:18 | XMS_ITS | Encounter Summary ---
Author Organization [employer] Address [address] [facility] 7t [place] [address] Care Team Providers Care Geek [employer] Name Role Phone Francisco Suh MD Primary Care Provider +1- [phone] Encounter Details Date Type Department Care Team ([facility] Contact Info) Description 06/08/2024 Telephone [facility] CHC MED & PEDS [address] [place], [place] [phone] Francisco Suh MD [address] [place], [place] [phone] Social History Tobacco Use Types Packs/Day Years [...] encounter Miscellaneous Notes * Telephone Encounter - Faith Lopez RN - 06/08/2024 9:58 AM EST Pt walked in c/o vaginal burning, odor, and itching x 5 days. Pt denies any abnormal discharge and is requesting med for yeast infection. Pt was offered WIC but pt preferred to wait to see a providertomorrow. Pt denies any urinary issues and no hx of DM. Pt advised if symptoms get worse to go to WIC. Pt verbalized understanding and agrees with plan. documented in this encounter Plan of Treatment Upcoming Encounters Date Type Department Care Team ([facility] st Contact Info) Description 08/10/2024 10:30 AM EDT Office Visit [facility] MED & PEDS [address] [place] [address] Francisco Suh MD [address] [place] [address] documented as of this encounter Visit Diagnoses Not on filedocumented in this encounter Additional Health Concerns Assessment Noted Time PHQ-9 Depression Total Score: 0 03/10/20 24 11:11 AM EST documented as of this encounter Care Teams [employer] Relationship Specialty Start Date End Date Francisco Suh MD [address] [place] [address] PCP - General Internal Medicine 04/21/13 documented as of this encounter
[2024-06-10 14:06] LABS: Bacterial Vaginosis PCR NEGATIVE (Negative); Candida Group PCR NOT DETECTED (Not Detect); Candida glab krusei PCR NOT DETECTED (Not Detect); Trichomonas vaginalis PCR NOT DETECTED (Not Detect)
== END 2024-06-09 13:20 | disposition home or self-care (01) ==
LOC: HO.CHCLDS 13:19
PROVIDERS: Visit Provider Registered Nurse
DX: N76.0 Acute vaginitis (principal)
CPT/HCPCS: 81515

== ENCOUNTER 2025-04-01 09:32 | Outpatient (AMB) | payer MEDICARE, MEDICAID, SELFPAY ==
--- NOTE | 2025-04-01 07:56 | MHC.OFFVIS ---
Intake Visit Reasons: Former Smoker Allergies egg (Egg) Allergy (Mild, Unverified 12/30/19 15:34) NAUSEA Iodinated Contrast Media (IV Dye, Iodine Containing) Allergy (Mild, Unverified 12/30/19 15:34) HIVES Shellfish Allergy (Mild, Uncoded 12/30/19 15:34) HIVES HPI HPI Former Smoker: Details: Initial visit for this 74yo former smoker with a 25PYH. Patient started smoking at age 16 for 50 years at 1/2ppd. She quit 8 years ago in 08/10/2016. . Denies marijuana use. Denies second hand smoke exposure. Denies exposure to chemicals or substances like asbestos. . Denies known family history of lung cancer. Denies personal history of cancers. Denies chest CT in last year. . Denies recent travel outside the [place]. Denies recent respiratory illness or recent hospitalization for respiratory issues. History testing positive for COVID. Denies receiving COVID Vaccine. . Denies fever, chills, new/worsening cough, hemoptysis, hoarseness or dysphagia. Denies significant chest pain, significant dyspnea or unintentional weight loss. Patient Lung Cancer Screening Questionnaire reviewed with patient by provider. . Shared Decision Making Completed. Patient meets criteria. Discussed in detail with patient, the risk vs benefit of LDCT screening. Patient consents to proceed with scan. Discussed smoking cessation. [facility] Medical History (Updated 04/01/25 @ 09:39 by Anna Goncalves PA-C) Osteopenia COPD (chronic obstructive pulmonary disease) Diverticular disease Hyperlipidemia Hypertension Personal history of nicotine dependence Surgical History (Updated 04/01/25 @ 09:58 by Anna Goncalves PA-C) History of carpal tunnel surgery of right wrist History of lumbar surgery History of partial colectomy Family History (Updated 04/01/25 @ 10:00 by Anna Goncalves PA-C) Mother Stomach cancer Social History (Updated 04/01/25 @ 10:08 by Anna Goncalves PA-C) Alcohol intake: current Alcohol intake frequency: does not drink Patient Tobacco Use Status: Former Tobacco user Years Smoked: (onset age 16, 1/2ppd x 50yrs, 25pyh, quit 2017) Assessment & Plan Assessment & Plan (1) Personal history of nicotine dependence: Comment: (onset age 16, 1/2ppd x 50yrs, 25pyh, quit 2017) Code(s): Z87.891 - Personal history of nicotine dependence Category: Medical Plan: - SDM visit completed today in office. - Patient meets criteria for LDCT for lung cancer screening purposes and is asymptomatic. - Smoking cessation counseling offered. Patients can always call [phone]. - Will arrange for a LDCT scan of the chest for screening purposes at [facility]. - Risks, benefits, and alternatives were discussed in detail and the patient agrees to proceed. - Risks discussed include but are not limited to: radiation exposure, anxiety during testing and while awaiting results, false negatives, false positives and possibility of additional intervention such as further imaging or surgical procedures for benign disease. - Benefits are obviously detection of lung cancer at an early stage which can lead to improved outcomes. - Discussed the importance of screening program compliance with adherence to yearly LDCT scan as scheduled - or sooner interval scans for personalized screening regimen. - Discussed follow up plan. Our office will send a letter discussing results and if needed set up phone call and office visit based on CT findings. - Patient educated on results categorization and the management decisions for suspicious findings potentially found on the screening LDCT scan. Any patient with a Lung RADS score of 3 or 4 will be reviewed by a multidisciplinary team at [facility] to form a plan of action in regards to scan findings. - If further work up is warranted for a suspicious lung finding this will be followed by the Lung Cancer Screening program in conjunction with the Thoracic Surgery Department at [facility]. - A copy of the office note and LDCT will be sent to the patient's PCP - as well as documentation on any associated further plans of care. - Incidental findings on LDCT are the PCP's responsibility. These findings are indicated with an S finding on the LDCT Assessment. A note discussing the findings will be sent to the PCP who is then responsible for further management. - All questions answered.? Plan Of note for PCP: we discussed family history during visit and there is a history of stomach cancer in patients mother and maternal aunt. We discussed genetic counseling referral as stomach cancer can be linked to a number genetic mutations/conditions. Advised to further discuss with PCP. Coding Level of Care Code Lung Cancer Screening G0296 Diagnoses Personal history of nicotine dependence Z87.891
--- OUTSIDE RECORDS SUMMARY | 2025-04-01 10:19 | XMS_ITS | Encounter Summary ---
Author Organization [employer] Address [address] [place] [address] 7 [place] [address] Care Team Providers Care Reimbursement Counselor Name Role Phone Francisco Suh MD Primary Care Provider +1- [phone] Reason for Referral * Consultation (Routine) - Closed Specialty Diagnoses / Procedures Referred By Contac t Referred To Contact Pulmonary Disease Diagnoses History of smoking Francisco Suh MD [address] [place] [address] Phone: tel: fax: Referral ID Status Reason Start Date Expiration Date V isits Requested Visits Authorized [id number] Closed Specialty Services Required 11/22/2024 11/22/2025 1 1 Encounter Details Date Type Department Care Team ([facility] st Contact Info) Description 11/22/2024 Orders Only [facility] CHC MED & PEDS [address] [place] [address] Francisco Suh MD [address] [place] [address] History of smoking (Primary Dx) Social History Tobacco Use Types [...] as of this encounter Plan of Treatment Scheduled Referrals Name Type Priority Associated Diagnoses Order Schedule Referral to Pulmonology Outpatient Referral Routine History of smoking Expected: 11/22/2024 (Approximate), Expires: 11/22/2025 documented as of this encounter Visit Diagnoses Diagnosis History of smoking- Primary Personal history of tobacco use, presenting hazards to health documented in this encounter Additional Health Concerns Assessment Noted Time PHQ-9 Depression Total Score: 0 03/10/20 24 11:11 AM EST documented as of this encounter Care Teams Reimbursement Counselor Relationship Specialty Start Date End Date Francisco Suh MD [address] [place] [address] PCP - General Internal Medicine 04/21/13 documented as of this encounter
--- OUTSIDE RECORDS SUMMARY | 2025-04-01 10:19 | XMS_ITS | Encounter Summary ---
Author Organization [employer] Address [address] [place] [address] 7t [place] [address] Care Team Providers Care Appliance Adjuster Name Role Phone Francisco Suh MD Primary Care Provider +1- [phone] Encounter Details Date Type Department Care Team ([facility] st Contact Info) Description 06/21/2022 Orders Only [facility] CHC MED & PEDS [address] [place] [address] Ekaterina Serrano LPN Social History Tobacco Use Types Packs/Day Years Used Date Smoking Tobacco: Never Assessed Comments Unknown Sex and Gender Information Value Date Recorded Sex Assigned at Female 02/11/2022 10:14 AM EDT Legal Sex Female 10:14 AM EDT Gender Identity Female 02/11/2022 10:14 AM EDT Sexual Orientation Straight 02/11/2022 10 :14 AM EDT documented as of this encounter Plan of Treatment Not on file documented as of this encounter Visit Diagnoses Not on filedocumented in this encounter Care Teams Appliance Adjuster Relationship Specialty Start Date End Date Francisco Suh MD [address] [place] [address] PCP - General Internal Medicine 04/21/13 documented as of this encounter
--- OUTSIDE RECORDS SUMMARY | 2025-04-01 10:19 | XMS_ITS | Encounter Summary ---
Author Organization [employer] Address [address] [place] [address] 7 [place] [address] Care Team Providers Care Wellness Instructor Name Role Phone Francisco Suh MD Primary Care Provider +1- [phone] Encounter Details Date Type Department Care Team ([facility] st Contact Info) Description 07/04/2023 Orders Only [facility] CHC MED & PEDS [address] [place] [address] Francisco Suh MD [address] [place] [address] Social History Tobacco Use Types Packs/Day Years [...] documented as of this encounter Care Teams Wellness Instructor Relationship Specialty Start Date End Date Francisco Suh MD [address] [place] [address] PCP - General Internal Medicine 04/21/13 documented as of this encounter
--- OUTSIDE RECORDS SUMMARY | 2025-04-01 10:19 | XMS_ITS | Encounter Summary ---
Author Organization [employer] Address [address] [place] [address] 7 [place] [address] Care Team Providers Care Ager Operator Name Role Phone Francisco Suh MD Primary Care Provider +1- [phone] Reason for Visit * Reason Comments Med Refill Encounter Details Date Type Department Care Team ([facility] st Contact Info) Description 10/10/[address] [facility] CHC MED & PEDS [address] [place], [place] [phone] Loyda Salas MD [address] [place] [address] Social History Tobacco Use Types Packs/Day Years [...] documented as of this encounter Care Teams Ager Operator Relationship Specialty Start Date End Date Francisco Suh MD [address] [place] [address] PCP - General Internal Medicine 04/21/13 documented as of this encounter
--- OUTSIDE RECORDS SUMMARY | 2025-04-01 10:19 | XMS_ITS | Encounter Summary ---
Author Organization [employer] Address [address] [place] [address] 7 [place] [address] Care Team Providers Care International Operations Manager Name Role Phone Francisco Suh MD Primary Care Provider +1- [phone] Reason for Visit * Reason Onset Date Comments Medication Question 09/01/2023 Encounter Details Date Type Department Care Team ([facility] st Contact Info) Description 09/01/2023 Telephone [facility] MEDICINE [address] [place] [address] Francisco Suh MD [address] [place] [address] Medication Question Social History Tobacco Use Types [...] agreement with plan, states she will call [facility] pharm to see if med can be sent to her due to transportation issues. * Telephone Encounter - Chidi Bradshaw - 09/01/2023 9:04 AM EDT Tc from patient calling to request a alternative medication for the Spiriva HandiHaler 18 MCG inhalation capsule patient stated due to insurance it will not be covered documented in this encounter Plan of Treatment Not on file documented as of this encounter Visit Diagnoses Not on filedocumented in this encounter Additional Health Concerns Assessment Noted Time PHQ-9 Depression Total Score: 0 09/27/19 23 10:06 AM EDT documented as of this encounter Care Teams International Operations Manager Relationship Specialty Start Date End Date Francisco Suh MD [address] [place] [address] PCP - General Internal Medicine 04/21/13 documented as of this encounter
--- OUTSIDE RECORDS SUMMARY | 2025-04-01 10:19 | XMS_ITS | Patient Health Record ---
Author Organization [facility] Address [address] [place] [address] Care Team Providers Care College Coach Name Role Phone Francisco Suh M.D. Primary Care Provider Un available Kvng Naylor Unavailable [phone] Reason For Referral No Information Plan Of Treatment No Information Insurance Providers Payer Name Payer Address Payer Phone Subscriber Number Group Number Insured Name Patient Relationship to Insured Coverage Start Date Coverage End Date MEDICARE OF [place] [address] [place] [address] [id number] JACQUES MARTINEZ Self - patient is the insured MEDICAID OF [facility] [address] [place] [phone] [id number] JACQUES MARTINEZ Self - patient is the insured
--- OUTSIDE RECORDS SUMMARY | 2025-04-01 10:19 | XMS_ITS | Encounter Summary ---
Author Organization [employer] Address [address] [place] [address] 7t [place] [address] Care Team Providers Care Messenger Copy Name Role Phone Francisco Suh MD Primary Care Provider +1 [phone] Encounter Details Date Type Department Care Team (Late st Contact Info) Description 10/09/2022 Orders Only [facility] MEDICINE [address] [place] [address] Namrata Lopez LPN Social History Tobacco Use [...] documented as of this encounter Care Teams Messenger Copy Relationship Specialty Start Date End Date Francisco Suh MD [address] [place] [address] PCP - General Internal Medicine 04/21/13 documented as of this encounter
--- OUTSIDE RECORDS SUMMARY | 2025-04-01 10:19 | XMS_ITS | Encounter Summary ---
Author Organization [employer] Address [address] [place] [address] [address] [place] [address] Care Team Providers Care Host Coordinator Name Role Phone Francisco Suh MD Primary Care Provider [phone] Encounter Details Date Type Department Care Team ([facility] st Contact Info) Description 09/01/2023 Orders Only [facility] PEDS [address], [place] [phone] Francisco Suh MD [address] [place], [place] [phone] Chronic obstructive pulmonary disease with acute exacerbation [...] obstructive pulmonary disease with acute exacerbation (CMS/HCC) (HCC)- Primary documented in this encounter Additional Health Concerns Assessment Noted Time PHQ-9 Depression Total Score: 0 09/27/19 23 10:06 AM EDT documented as of this encounter Care Teams Host Coordinator Relationship Specialty Start Date End Date Francisco Suh MD [address] [place] [phone] PCP - General Internal Medicine 04/21/13 documented as of this encounter
--- OUTSIDE RECORDS SUMMARY | 2025-04-01 10:19 | XMS_ITS | Clinical Summary ---
Author Organization [employer] Address [address] [place] [address] 7[address] [place] [address] Care Team Providers Care Scientific Aide Name Role Phone Francisco Suh MD Primary Care Provider [phone] Allergies Active Allergy Reactions Criticality Noted Date Comments Iodine 11/03/2012 Shellfish Protein-Containing Drug Products High 12/03/2011 Other reaction(s): Hives Medications omeprazole (PriLOSEC) [address] capsule take 1 capsule by oral route every day before a meal 2 Active albuterol (2.5 MG/3ML) 0.083% nebulizer solution Take 3 mL (2.5 mg) by nebulization every 4 (four) hours if needed for wheezing. 30 mL 1 3 Active Spiriva HandiHaler 18 MCG inhalation capsule USE 1 CAPSULE FOR INHALATION ONCE A DAY DO NOT SWALLOW CAPSULE 30 capsule 11 4 Active fluconazole (Diflucan) 150 MG tabletIndication s:Acute vaginitis Take 1 tablet by oral route. 1 tablet 5 Active fluticasone-salm eterol (Advair HFA) 230-21 MCG/ACT inhalerIndicatio ns:COPD mixed type (CMS/HCC) (HCC) Inhale 2 puffs in the morning and at bedtime. Rinse mouth with water after use to reduce aftertaste and incidence of candidiasis. Do not swallow. 12 g 11 03/22/2025 12:39 PM EST 5 Active albuterol 108 (90 Base) MCG/ACT inhalerIndicatio ns:Chronic obstructive pulmonary disease with acute exacerbation (CMS/HCC) (HCC) Inhale 2 puffs every 4 (four) hours if needed for wheezing. 18 g 3 5 026 Active Umeclidinium [place] (Incruse Ellipta) 62.5 MCG/ACT aerosol powderIndication s:Chronic obstructive pulmonary disease with acute exacerbation (CMS/HCC) (HCC) Inhale 1 Act (62.5 mcg) Once per day. 3 months supply please. 90 each 3 03/22/2025 12:39 PM EST 5 Active omeprazole (PriLOSEC) [address] capsuleIndicatio ns:Gastroesophag eal reflux disease without esophagitis TAKE ONE CAPSULE BY MOUTH EVERY DAY BEFORE A MEAL 90 capsule 3 03/29/2025 11:51 AM EST 5 Active amLODIPine (Norvasc) 10 MG tablet TAKE 1 TABLET BY MOUTH EVERY MORNING 90 tablet 3 5 Active simvastatin (Zocor) 40 MG tabletIndication s:Hypercholester olemia TAKE ONE TABLET EVERY EVENING 90 tablet 3 5 Active amLODIPine (Norvasc) 5 MG tabletIndication s:Benign hypertension Take 1 tablet (5 mg) by mouth Once per day. 30 tablet 11 03/22/2025 12:39 PM EST 5 026 Active hydroCHLOROthiaz james 12.5 MG tabletIndication s:Benign hypertension Take 1 tablet (12.5 mg) by mouth Once per day. 30 tablet 11 03/22/2025 12:39 PM EST 5 026 Active Active Problems Problem Noted Date Diagnosed Date Chronic obstructive lung disease 12/04/2017 Benign hypertension 12/03/2011 Diverticular disease 12/03/2011 Hyperlipidemia 12/03/2011 Immunizations Immunization Administration Dates Next Due TD (adult), 2 [...] Sign Reading Time Taken Comments Blood Pressure 159/75 12/30/2024 11:24 AM EDT Pulse 69 12/30/2024 11:24 AM EDT Temperature 36.3 C (97.3 F) 12/30/2024 11:24 AM EDT Respiratory Rate 20 12/30/2024 11:24 AM EDT Oxygen Saturation 93% 12/30/2024 11:24 AM EDT Inhaled Oxygen Concentration - - Weight 56.7 kg (125 lb) 12/30/2024 11:24 AM EDT Height 152.4 cm (5') 12/30/2024 11:24 AM EDT Body Mass Index 24.41 12/30/2024 11:24 AM EDT Plan of Treatment Health Maintenance Due Date Last Done Comments CT Colonography 1950 Colonoscopy 1950 FIT 1950 Sigmoidoscopy 1950 Pneumococcal Vaccine: 50+ Years (1 of 2 - PCV) 1969 Lung Cancer Screening 2000 RSV Patients and Patients Aged 60 years or older (1 - Risk 50-74 years 1-dose series) 2000 Zoster Vaccines (1 of 2) 2000 DTaP/Tdap/Td Vaccines (1 - Tdap) 07/11/2004 07/10/2004, 07/22/1994 Mammogram 12/19/2022 12/19/2020, 02/23/2019 COVID-19 Vaccine (1 - 2024-2 6 season) 2024 Influenza Vaccine (#1) 2024 Depression Screening 03/10/2025 03/10/2024, 03/10/2024 FOBT 03/15/2025 03/15/2024 SDOH Screening 07/29/2025 07/29/2024 Alcohol/Substance Use Screening 12/30/2025 12/30/2024 Tobacco Screening 12/30/2025 12/30/2024 Colorectal Cancer Screening 03/15/2027 FIT DNA/Cologuard 03/15/2027 [...] patient's age to complete this topic Meningococcal B Vaccine Aged Out No l onger eligible based on patient's age to complete [...] Procedure Name Priority Date/Time Associated Diagnosis Comments LAB COLOGUARD COLON CANCER SCREEN Routine 03/15/2024 10:15 AM EST Screening for colon cancer LIPID PANEL, STANDARD Routine 03/10/2024 12:00 PM EST Mixed hyperlipidemia ZZZ HISTORICAL HEPATITIS C AB W/REFL TO HCV RNA, QN, PCR Routine 01/07/2022 9:50 AM EDT MAMMOGRAM GENERIC Routine 12/19/2020 9:1 5 AM EDT from Last 3 Months or Most Recently Relevant to Health Maintenance Results * (ABNORMAL) Cologuard?? colon cancer screening (03/15/2024 10:15 AM EST) Cologuard Result Positive( A) Negative 03/20/2024 9:39 PM EST [facility] (CLIA #:[id number]) Comment: POSITIVE TEST RESULT. A positive Cologuard result should be followed with a colonoscopy or visual examination of the colon. The normal value (reference range) for this assay is negative. TEST DESCRIPTION: Composite algorithmic analysis of stool DNA-biomarkers with hemoglobin immunoassay. Quantitative values of individual biomarkers are not [...] (Johnie Ag al, N Engl J Med 2014;370(14):8520-5317.) Cologuard may produce a false negative or false positive result (no colorectal cancer or precancerous polyp present at colonoscopy follow up). A negative Cologuard test result does not guarantee the absence of CRC or advanced adenoma (pre-cancer). The current Cologuard screening interval is every 3 years. ([employer] Society and U.S. Multi-Society Task Force). Cologuard performance data in a 10,000 patient pivotal study using colonoscopy as the reference method can be accessed at the following location: [email or web address].Gocella/results. Additional description of the Cologuard test process, warnings and precautions can be found at [email or web address]. Stool specimen (specimen) 03/15/2024 10:15 AM EST 03/16/2024 1:11 PM EST us Francisco Suh MD LAB MOLECULAR DIAGNOSTICS O RDERABLES Final Result [facility] (CLIA #:[id number]) [place] [address], * (ABNORMAL) Lipid Panel, Standard (03/10/2024 12:00 PM EST) Triglycerides 114 <150 mg/dL [facility] Comment:Desirable Triglyceri de: less than 150 mg/dLBorderline High Triglyceride 150-199 mg/dLHigh Triglyceride: 200-499 mg/dLVery High Triglyceride: greater than or equal to 5OO mg/dL Cholesterol 185 <200 mg/dL [facility] Comment:Desirable Cholestero l: less than 200 mg/dLBorderline High Cholesterol: 200-239 mg/dLHigh Cholesterol: greater than 239 mg/dL LDL Cholesterol Calculated 108(H) <100 mg/dL [facility] Comment:Desirable LDL: less than 100 mg/dLNear Optimal/Above Optimal LDL: 110- 129 mg/dLBorderline High LDL: 130-159 mg/dLHigh LDL: 160-189 mg/dLVery High LDL: greater than or equal to 190 mg/dL HDL Cholesterol 55 >40 mg/dL [facility] Comment:Desirable HDL: great er than 40 mg/dL Note: This HDL assay may give artificially low results in patients with liver disease. Blood Venous blood specimen / Unknown 03/10/2024 12:00 PM EST 03/10/2024 2:18 PM EST us Francisco Suh MD LAB BLOOD ORDERABLES Final Result [facility] [address] [place] [address] [phone] * HEPATITIS C AB W/REFL TO HCV RNA, QN, PCR (01/07/2022 9:50 AM EDT) HEPATITIS C ANTIBODY NON-REACT NASIM NON-REACT NASIM [facility] INDEX 0.05 <1.00 [facility] Comment: HCV antibody was non-reactive. There is no laboratory evidence of HCV infection. In most cases, no further action is required. However, if recent HCV exposure is suspected, a test for HCV RNA (test code 63704) is suggested. For additional information please refer to http://[email or web address].Gocella/faq/ASD28d9 (This link is being provided for informational/ educational purposes only.) 01/07/2022 9:50 AM EDT us Francisco Suh MD HISTORICAL/NON ORDERABLE LA BS Final Result [facility] [address] * Mammography Report 1 (12/19/2020 9:15 AM EDT) Anatomical Region Laterality Modality Breast Bilateral Mammography 12/19/2020 9:15 AM EDT Narrative 12/20/2020 7:57 AM EDT Refer to the Notes tab for result details [facility] Procedure: Mammography Report 1 Procedure Note Provider, MD Mariya - 07/07/2022 Refer to the Notes tab for result details [facility] Procedure: Mammography Report 1 Francisco Suh MD IMG BI PROCEDURES Final Res ult from Last 3 Months or Most Recently Relevant to Health Maintenance Insurance MEDICARE Member Subscriber Plan / Payer (Ef fective 2022-Present) Name:Rachael Mcgraw Member ID:[id number] Relation to Subscriber:Self Name:Rachael Mcgraw Subscriber ID:[id number] Payer ID:[facility] Group ID:Not on file Type:Medicare Address: [facility] [address] [address] [facility] Care Teams Scientific Aide Relationship Specialty Start Date End Date Francisco Suh MD [address] [place] [address] [place] [id number] PCP - General Internal Medicine 04/21/13
--- OUTSIDE RECORDS SUMMARY | 2025-04-01 10:19 | XMS_ITS | Encounter Summary ---
Author Organization [employer] Address [address] [place] [address] [address] [place] [address] Care Team Providers Care Machine Tool Operator Name Role Phone Francisco Suh MD Primary Care Provider [phone] Reason for Visit * Reason Onset Date Comments Medication Question 07/04/2023 Encounter Details Date Type Department Care Team ([facility] st Contact Info) Description 07/04/2023 Telephone [facility] [address] [place] [address] Francisco Suh MD [address] [place] [address] Medication Question Social History Tobacco Use Types [...] Time PHQ-9 Depression Total Score: 0 09/27/19 10:06 AM EDT documented as of this encounter Care Teams Machine Tool Operator Relationship Specialty Start Date End Date Francisco Suh MD [address] [place] [id number] PCP - General Internal Medicine 04/21/13 documented as of this encounter
--- OUTSIDE RECORDS SUMMARY | 2025-04-01 10:19 | XMS_ITS | Encounter Summary ---
Author Organization [employer] Address [address] [place] [address] [address] [place] [address] Care Team Providers Care Copy Center Operator Name Role Phone Francisco Suh MD Primary Care Provider [phone]- [phone] Reason for Referral * Consultation (Routine) - Closed Specialty Diagnoses / Procedures Referred By Contac t Referred To Contact Gastroenterology Diagnoses Positive colorectal cancer screening using Cologuard test Francisco Suh MD [address] [place] [phone] Phone: tel: fax: Adalberto Tomlinson MD [address] [place] [address] [place] [address] Phone: tel: fax: Referral ID Status Reason Start Date Expiration Date V isits Requested Visits Authorized [id number] Closed Specialty Services Required 03/21/2024 03/21/2025 1 1 Encounter Details Date Type Department Care Team ([facility] st Contact Info) Description 03/21/2024 Orders Only [facility] P[facility]S [address] [place] [phone] Francisco Suh MD [address] [place] [address] [phone] Positive colorectal cancer screening using Cologuard test [...] documented as of this encounter Care Teams Copy Center Operator Relationship Specialty Start Date End Date Francisco Suh MD [address] [place] [phone] PCP - General Internal Medicine 04/21/13 documented as of this encounter
== END 2025-04-01 10:36 | disposition home or self-care (01) ==
LOC: HO.HPS 09:33
PROVIDERS: PCP Internal Medicine; Referring Provider Internal Medicine; Visit Provider Physician Assistant Medical
DX: Z87.891 Personal history of nicotine dependence (principal)
CPT/HCPCS: G0296

== ENCOUNTER 2025-04-01 10:08 | Outpatient (REF) | payer MEDICARE, MEDICAID, SELFPAY ==
--- NOTE | ~2025-04-01 | CT_ITS ---
EXAMINATION: CT LUNG SCREENING HISTORY: Z87.891 - Personal history of nicotine dependence TECHNIQUE: Low dose axial images were obtained from the sternal notch to upper abdomen without IV contrast per standard departmental protocol. Sagittal and coronal reformatted images were also obtained and reviewed. One or more of the following techniques was used for dose reduction: Automated exposure control, adjustment of the mA and/or kV according to patient size, use of iterative reconstruction technique. DLP: 46 mGy-cm COMPARISON: Comparison is made with the prior examination dated 11/30/2019. FINDINGS: Lung nodules: There are 3 mm nodules in the left upper lobe (series 5, images 41 and 65). No suspicious pulmonary nodules are identified. There is linear scarring in the right middle lobe. Emphysema: none Coronary Calcification: severe Aortic Arch Calcification: moderate Potentially Significant Incidentals : none Additional Chest Findings: There is no pleural or pericardial effusion. No mediastinal or axillary lymphadenopathy is identified. Visualized upper abdomen: The visualized portions of the liver, spleen, and adrenals have an unremarkable unenhanced appearance. CT/CT lung screening IMPRESSION: No suspicious pulmonary nodules are identified. LUNG-RADS ASSESSMENT: Lung-RADS 2: Benign MANAGEMENT: Continue annual screening with LDCT in 12 months Category S: N/A Electronically signed by: Kvng Kirby MD 04/01/2025 11:11 AM [facility]
== END 2025-04-01 10:09 | disposition home or self-care (01) ==
LOC: HO.CT 10:08
PROVIDERS: PCP Internal Medicine; Visit Provider Physician Assistant Medical
DX: Z87.891 Personal history of nicotine dependence (principal); Z71.6 Tobacco abuse counseling
CPT/HCPCS: 71271; G0296

== ENCOUNTER → 2025-04-01 10:09 | Outpatient (BNV) | payer MEDICARE, MEDICAID, SELFPAY | PROVIDERS: PCP Internal Medicine; Visit Provider Radiology Diagnostic Radiology | DX: Z87.891 Personal history of nicotine dependence (principal) | CPT/HCPCS: 71271 ==